=== PATIENT | female | born 1990 | race African-American/Black ===

== ENCOUNTER 2020-07-21 15:19 | Emergency (ER) | payer OTHER ==
--- NOTE | 2020-07-21 15:31 | PDOC ---
Rapid Medical Evaluation Time Seen by Provider: 07/21/20 15:26 Medical Evaluation: 07/21/20 15:30 I have performed a brief in-person evaluation of this patient The patient presents with a chief complaint of:chronic pelvic pain and missed out-pt pelvic US for unclear reasons. C/o usual pelvic pain, not worse and no new sxs Pertinent physical exam findings:well sahra,stable I have ordered the following:ua/preg The patient will proceed to the ED for further evaluation Discharge Disposition - Diagnosis Chronic pelvic pain in female - Referrals - Patient Instructions - Post Discharge Activity
[2020-07-21 15:33] VITALS: BP 89/53; PULSE 74; TEMP 98.1; BMI 24.9
--- NOTE | 2020-07-21 17:33 | PDOC ---
History of Present Illness - General Chief Complaint: Pain Stated Complaint: ABD PAIN Time Seen by Provider: 07/21/20 15:26 - History of Present Illness Initial Comments: 07/21/20 17:32 30-year-old female presents for evaluation of pelvic pain x2 months scheduled for an ultrasound she missed her appointment she is requesting an emergent ultrasound today. Past History - Medical History Allergies/Adverse Reactions: Allergies Allergy/AdvReac Type Severity Reaction Status Date / Time No Known Allergies Allergy Verified 07/21/20 15:33 COPD: No - Reproductive History Is Patient Now?: No - Psycho-Social/Smoking History Smoking History: Never smoked Review of Systems - Review of Systems Constitutional: No: Fever : No: Burning, Dysuria, Discharge, Frequency, Flank Pain, Pain, Urgency *Physical Exam - Vital Signs Last Vital Signs Temp Pulse Resp BP Pulse Ox 98.1 F 74 18 89/53 L 100 07/21/20 15:31 07/21/20 15:31 07/21/20 15:31 07/21/20 15:31 07/21/20 15:31 - Physical Exam General Appearance: Yes: Appropriately Dressed. No: Apparent Distress HEENT: positive: Normal ENT Inspection, Normal Voice, Symmetrical Neck: positive: Trachea midline, Supple Respiratory/Chest: negative: Normal Breath Sounds, Respiratory Distress Musculoskeletal: positive: Normal Inspection Extremity: positive: Normal Inspection Discharge - Discharge Information Problems reviewed: Yes Clinical Impression/Diagnosis: Chronic pelvic pain in female Condition: Stable Disposition: ELOPED - Follow up/Referral Referrals: ON STAFF,NOT [Primary Care Provider] - - Patient Discharge Instructions - Post Discharge Activity
== END 2020-07-21 17:35 | disposition left against medical advice (07) ==
LOC: JERFT 15:19
DX: R10.2 Pelvic and perineal pain (principal)
CPT/HCPCS: 87086; 99283-25

== ENCOUNTER 2020-12-18 13:47 | Emergency (ER) | payer OTHER ==
[2020-12-18 14:14] VITALS: BP 110/76; PULSE 78; TEMP 99; BMI 24.0
== END 2020-12-18 14:52 | disposition home or self-care (01) ==
LOC: FER 13:47
DX: R10.2 Pelvic and perineal pain (principal); D35.2 Benign neoplasm of pituitary gland; N94.6 Dysmenorrhea, unspecified
CPT/HCPCS: 99282-25

== ENCOUNTER 2021-07-22 09:59 | Emergency (ER) | payer OTHER ==
[2021-07-22 10:13] VITALS: BP 100/63; PULSE 64; TEMP 99.3; BMI 24.0
[2021-07-22 11:07] LABS: BASO % 4.3 % (0-2.0); EOS % 0.9 % (0-4.5); HEMATOCRIT 38.9 % (32.4-45.2); HEMOGLOBIN 12.8 GM/dl (10.7-15.3); LYMPH % 25.9 % (8-40); MCHC 32.9 g/dl (32.0-36.0); MEAN CELL VOLUME 88.1 fl (80-96); NEUT % 57.9 % (42.8-82.8); PLATELET COUNT 226 10^3/uL (134-434); RBC 4.42 M/mm3 (3.60-5.2); RDW 12.6 % (11.6-15.6); WHITE BLOOD COUNT 5.6 K/mm3 (4.0-10.8)
[2021-07-22 11:17] LABS: ALBUMIN 3.7 g/dl (3.4-5.0); BILIRUBIN,TOTAL 0.6 mg/dl (0.2-1); CREATININE 0.7 mg/dl (0.55-1.3); TOT PROT 6.2 g/dl (6.4-8.2)
== END 2021-07-22 13:10 | disposition home or self-care (01) ==
LOC: FER 09:59
DX: N83.201 Unspecified ovarian cyst, right side (principal); Z3A.01 Less than 8 weeks gestation of pregnancy
CPT/HCPCS: 36415; 76817-TC; 76856-TC; 80053; 81003; 84702; 84703; 85025; 87086; 87491; 87591; 99284-25